=== PATIENT | female | born 1995 | race Asian ===

== ENCOUNTER 2022-10-04 07:59 | Emergency (ER) | payer OTHER, SELFPAY ==
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
[2022-10-04 08:05] VITALS: BP 111/62; PULSE 81; RESP 20; TEMP 36.2; O2SAT 100
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
== END 2022-10-04 09:41 | disposition home or self-care (01) ==
PROVIDERS: Emergency Provider Emergency Medicine
DX: H66.92 Otitis media, unspecified, left ear (principal); S60.511A Abrasion of right hand, initial encounter; S80.12XA Contusion of left lower leg, initial encounter; V49.9XXA Car occupant (driver) (passenger) injured in unspecified traffic accident, initial encounter
CPT/HCPCS: 73130; 99283; A9270